=== PATIENT | male | born 1985 | race Caucasian/White ===

== ENCOUNTER 2017-02-15 20:31 | Emergency (ER) | payer OTHER ==
--- NOTE | 2017-02-15 21:19 | ER NURSING DOCUMENTATION ---
Nurse's Notes [facility] Name:Reece Callahan Age:31 yrs Sex:Male :1985 Arrival Date:02/15/2017 Time:20:31 Bed5 Private MD: Diagnosis:Bacterial Conjunctivitis;Sinusitis Maxillary Presentation: 02/15 20:39 Acuity: JESSIE 5 mk2 20:44 Presenting complaint: Patient states: I think I have a sinus infection. I've had mk2 pressure for days and then my left eye got red and crusty. Pt denies fever. Transition of care: Home. Mechanism of Injury: No Mechanism of Injury. The patient denies any loss of vision. Care prior to arrival: tylenol sinus. 20:44 Method Of Arrival: Walk In mk2 21:03 Acuity: JESSIE 4 mk2 Triage Assessment: 20:45 General: Appears uncomfortable, Behavior is cooperative, pleasant. Pain: Complains of mk2 pain in sinuses between eyes. Pain currently is 3 out of 10 on a pain scale. EENT: Reports nasal congestion red and crusty eye. Neuro: No deficits noted. Respiratory: Breath sounds are clear bilaterally. 21:16 EENT: Reports sore throat. mk2 Historical: - Allergies: No known drug Allergies; - Home Meds: 1. Coumadin 10 mg oral tab 1 tab once daily for Deep Vein Thrombosis Prevention - PMHx: 3 clotting factors; - Tetanus: < 10 years. - Ebola Screening: : Patient negative for fever greater than or equal to 101.5 degrees Fahrenheit, and additional compatible Ebola Virus Disease symptoms. Patient denies exposure to infectious person. Patient denies travel to an Ebola-affected area in the 21 days before illness onset. No symptoms or risks identified at this time. . - Immunization history: Flu Vaccine < 1 year. - Social history: Smoking status: Patient states was never smoker of tobacco. Patient/guardian denies using alcohol, street drugs. Screenin:47 Infectious Disease Risk None. Abuse screen: Denies threats or abuse. Nutritional mk2 screening: No deficits noted. Assessment: 20:47 See Triage Assessment done by same RN. mk2 21:15 EENT: Eyes left is red throughout and crusting over. Sclera/Cornea are reddened in , mk2 outer aspect of conjuctiva of left eye, iris of left eye and inner aspect of conjunctiva of left eye. Vital Signs: 20:46 BP 123 / 80; Pulse 78; Resp 13; Temp 99.8; Pulse Ox 96% on R/A; Weight 104.33 kg; mk2 Height 6 ft. 1 in. (185.42 cm); Pain 3/10; 20:46 Body Mass Index 30.34 (104.33 kg, 185.42 cm) mk2 Visual Acuity: 21:06 Left Eye Visual acuity 20/20, ; Right Eye Visual acuity 20/20, ; Both Eyes Visual jt acuity 20/20; With Lenses; ED Course: 20:38 Patient arrived in ED. em3 20:39 Reyna Jay, RN is Primary Nurse. mk2 20:39 Triage completed. 2 20:41 Manoj Flood MD is Attending Physician. ia 20:47 Arm band placed on Bed in low position Call Light in Reach Gowned HOB Elevated Side 2 rails up x1. 21:16 Valuables Remains with patient Placed in gown. Bed in low position. Call light in reach.2 Administered Medications: 21:14 Drug: Amoxicillin 500 mg; Route: PO; 2 21:15 Follow up: Response: No adverse reaction 2 21:14 Drug: Gentamicin Ointment 0.3 % 0.5 inches; Route: Ophthalmic; Site: left eye; 2 21:15 Follow up: Response: No adverse reaction 2 Outcome: 21:07 Discharge ordered by . ia 21:15 Discharged to home ambulatory. mk2 21:15 Condition: stable 21:15 Discharge instructions given to patient, Instructed on discharge instructions, follow up and referral plans. medication usage, Prescriptions given X 1. 21:17 Patient left the ED. 2 07 17:09 Discharge F/U Call: Unable to reach: no answer lb Signatures: Manoj Flood MD MD ia Reyna Jay, AALIYAH RN 2 Yohan Looney em3 Lesly Herndon Lynda lb
[2017-02-15] MEDS ORDERED: GENTAMICIN 0.3% OPHTH OINTMENT 1 APPLIC APP ONE (21:20)
[2017-02-15] MEDS ORDERED: AMOXICILLIN 250 MG CAPSULE PO ONE (21:21)
--- NOTE | 2017-02-15 21:22 | ER PHYSICIAN DOCUMENTATION ---
Physician Documentation [facility] Name:Reece Callahan Age:31 yrs Sex:Male :1985 Arrival Date:02/15/2017 Time:20:31 Bed5 Private MD: Manoj Connolly Disposition: 02/15/17 21:07 Discharged to Home/Self Care. Impression: Bacterial Conjunctivitis, Sinusitis Maxillary. - Condition is Good. - Discharge Instructions: SINUSITIS, Abx Tx, Bacterial Eye Infection - CONJUNCTIVITIS, Bacterial. - Prescriptions for Amoxicillin 500 mg Oral Capsule - take 1 capsule by ORAL route every 8 hours for 10 days; 30 tablet. - Medical Reconciliation form form. - Follow up: Private Physician; When: As needed; Reason: Worsening of condition. - Problem is new. - Symptoms are unchanged. HPI: 02/15 21:02 This 31 yrs old Male presents to ER via Walk In with complaints of Eye Pain - sc Left. 21:02 The patient is experiencing redness, tearing. Onset: The symptom(s)/episode sc began/occurred yesterday. Duration: the symptoms are continuous. Associated signs and symptoms: Pertinent positives: runny nose. Severity of symptoms: At their worst the symptoms were moderate. The patient has not experienced similar symptoms in the past. Historical: - Allergies: No known drug Allergies; - Home Meds: 1. Coumadin 10 mg oral tab 1 tab once daily for Deep Vein Thrombosis Prevention - PMHx: 3 clotting factors; - Tetanus: < 10 years. - Ebola Screening: : Patient negative for fever greater than or equal to 101.5 degrees Fahrenheit, and additional compatible Ebola Virus Disease symptoms. Patient denies exposure to infectious person. Patient denies travel to an Ebola-affected area in the 21 days before illness onset. No symptoms or risks identified at this time. . - Immunization history: Flu Vaccine < 1 year. - Social history: Smoking status: Patient states was never smoker of tobacco. Patient/guardian denies using alcohol, street drugs. ROS: 21:02 Constitutional: Negative for fever, chills, and weight loss. sc Neck: Negative for injury, pain, and swelling. Cardiovascular: Negative for chest pain, palpitations, and edema. Back: Negative for injury and pain. Skin: Negative for injury, rash, and discoloration. 21:02 Neuro: Negative for headache, weakness, numbness, tingling, and seizure. sc 21:02 Eyes: Positive for discharge, redness, tearing. 21:02 ENT: Positive for rhinorrhea, sinus congestion, sinus pain. Exam: 21:03 Visual Acuity: I have reviewed the nursing documentation. wa Constitutional: This is a well developed, well nourished patient who is awake, alert, and in no acute distress. Head/Face: Normocephalic, atraumatic. Neck: Trachea midline, no thyromegaly or masses palpated, and no cervical lymphadenopathy. Supple, full range of motion without nuchal rigidity, or vertebral point tenderness. No meningismus. Skin: Warm, dry with normal turgor. Normal color with no rashes, no lesions, and no evidence of cellulitis. 21:03 Neuro: Awake and alert, GCS 15, oriented to person, place, time, and situation. Cranial nerves II-XII grossly intact. Motor strength 5/5 in all extremities. Sensory grossly intact. Cerebellar exam normal. Normal gait. 21:03 Eyes: Periorbital structures: appear normal, Pupils: equal, round, and reactive to light and accomodation, Extraocular movements: intact throughout, Conjunctiva: injected, Lids and lashes: drainage, from the left eye. 21:03 ENT: Nose: nasal drainage, and expressed from the left nare. Vital Signs: 20:46 BP 123 / 80; Pulse 78; Resp 13; Temp 99.8; Pulse Ox 96% on R/A; Weight 104.33 kg; mk2 Height 6 ft. 1 in. (185.42 cm); Pain 3/10; 20:46 Body Mass Index 30.34 (104.33 kg, 185.42 cm) mk2 Visual Acuity: 21:06 Left Eye Visual acuity 20/20, ; Right Eye Visual acuity 20/20, ; Both Eyes Visual jt acuity 20/20; With Lenses; MDM: 20:41 Patient medically screened. wa 21:06 Differential diagnosis: Infectious conjunctivitis in left eye. Data reviewed: vital wa signs, nurses notes, and as a result, I will discharge patient. Counseling: I had a detailed discussion with the patient and/or guardian regarding: the historical points, exam findings, and any diagnostic results supporting the discharge/admit diagnosis, to return to the emergency department if symptoms worsen or persist or if there are any questions or concerns that arise at home. Dispensed Medications: 21:14 Drug: Amoxicillin 500 mg; Route: PO; mk2 21:15 Follow up: Response: No adverse reaction mk2 21:14 Drug: Gentamicin Ointment 0.3 % 0.5 inches; Route: Ophthalmic; Site: left eye; mk2 21:15 Follow up: Response: No adverse reaction 2 Signatures: Manoj Flood MD MD sc Kruger, Meg RN RN mk2
== END 2017-02-15 21:17 | disposition home or self-care (01) ==
LOC: ER 20:31
DX: H10.022 Other mucopurulent conjunctivitis, left eye (principal); J01.00 Acute maxillary sinusitis, unspecified; D68.8 Other specified coagulation defects; Z79.01 Long term (current) use of anticoagulants
CPT/HCPCS: 99283